=== PATIENT | male | born 1990 | race Caucasian/White ===

== ENCOUNTER 2016-10-02 14:55 | Emergency (ER) | payer OTHER ==
[~2016-10-02] VITALS: Ht 193 cm; Wt 118.2 kg
[2016-10-02 15:00] VITALS: BP 146/91; PULSE 89; TEMP 98
[2016-10-02] MEDS ORDERED: NORCO 325 MG-51 TAB PO (16:03)
== END 2016-10-02 16:20 | disposition home or self-care (01) ==
LOC: COL.ER 14:55
DX: S93.601A Unspecified sprain of right foot, initial encounter (principal); S63.614A Unspecified sprain of right ring finger, initial encounter; W01.198A Fall on same level from slipping, tripping and stumbling with subsequent striking against other object, initial encounter

== ENCOUNTER → 2018-05-10 | Outpatient (CLI) | payer BC ==
[~2018-05-10] MED LIST: NORCO 325 MG-51 TAB PO
== END ==
LOC: COL.RAD 12:56
DX: M47.814 Spondylosis without myelopathy or radiculopathy, thoracic region (principal)

== ENCOUNTER → 2018-06-19 | Outpatient (CLI) | payer BC | LOC: MHCPAIN 12:12 | DX: G89.29 Other chronic pain (principal); M47.814 Spondylosis without myelopathy or radiculopathy, thoracic region | CPT/HCPCS: G0463 ==